=== PATIENT | female | born 1945 | race Caucasian/White ===

== ENCOUNTER 2022-11-04 06:30 | Day surgery (SDC) | payer OTHER ==
[2022-11-04] MEDS ORDERED: FLUMAZENIL 0.1 MG/ML (5 mL VIAL) IV ONE (07:01)
[2022-11-04] MEDS ORDERED: MIDAZOLAM HCL 5 ML ONE (07:01)
[2022-11-04] MEDS ORDERED: ATROPINE SULF 1 MG/10 ML SYR IV ONE (07:01)
[2022-11-04] MEDS ORDERED: LIDOCAINE VISCOUS 2% SOLN 15 ML UDC ONE (07:01)
[2022-11-04] MEDS ORDERED: NA CHLORIDE 0.9% 500 ML ONE (07:01)
[2022-11-04] MEDS ORDERED: METOPROLOL TARTRATE 5 MG/5 ML INJ IV ONE (07:02)
[2022-11-04] MEDS ORDERED: HYDRALAZINE HCL 20 MG/ML VIAL ONE (07:02)
--- NOTE | 2022-11-04 12:26 | TEE ---
TRANSESOPHAGEAL ECHOCARDIOGRAM REPORT CARDIOLOGY DEPARTMENT DATE OF STUDY: 11/04/2022 HEIGHT: 5'10" WEIGHT: 231 lbs DIAGNOSIS: POST WATCHMAN HEATING EQUIPMENT INSTALLER COMMENTS: CARDIAC HISTORY: CATHERIZATION: SURGERY: PROSTHETIC VALVE: PACEMAKER: 2 DIMENSIONAL ASSESSMENT: RIGHT ATRIUM: LEFT ATRIUM: RIGHT VENTRICLE: LEFT VENTRICLE: TRICUSPID VALVE: MITRAL VALVE: PULMONIC VALVE: AORTIC VALVE: PERICARDIAL EFFUSION: AORTIC ROOT: EJECTION FRACTION: 55-60% LEFT VENTRICULAR WALL MOTION: DOPPLER/COLOR FLOW: COMMENTS: 1. NORMAL LEFT VENTRICULAR EJECTION FRACTION 55-60% 2. TRACE MITRAL REGURGITATION 3. WATCHMAN IS SEATED WALL, NO LEAK, NO THROMBUS TECHNOLOGIST: BIPIN RAMACHANDRAN
== END 2022-11-04 09:30 | disposition home or self-care (01) ==
LOC: DS 06:30 → CARD 06:34 → DS 06:34 → EDSTATUS 07:03 → DS 09:30
PROVIDERS: ATTEND Internal Medicine
DX: I48.0 Paroxysmal atrial fibrillation (principal); Z98.890 Other specified postprocedural states; I25.10 Atherosclerotic heart disease of native coronary artery without angina pectoris; I70.223 Atherosclerosis of native arteries of extremities with rest pain, bilateral legs; I10 Essential (primary) hypertension; Z79.82 Long term (current) use of aspirin; Z79.899 Other long term (current) drug therapy; Z88.8 Allergy status to other drugs, medicaments and biological substances; Z87.891 Personal history of nicotine dependence
CPT/HCPCS: 93312; J0360; J0461; J2250; J7040